=== PATIENT | female | born 1995 | race African-American/Black ===

== ENCOUNTER 2022-07-21 15:41 | Emergency (ER) | payer OTHER ==
[2022-07-21 15:55] VITALS: BP 168/95; PULSE 83; RESP 18; TEMP 98.6; BMI 48.0
== END 2022-07-21 19:29 | disposition home or self-care (01) ==
LOC: FER 15:41
DX: M79.645 Pain in left finger(s) (principal); R22.32 Localized swelling, mass and lump, left upper limb
CPT/HCPCS: 73130-TC-LT-FY; 73140-TC-LT-FY; 99283-25